=== PATIENT | female | born 1975 | race Caucasian/White ===

== ENCOUNTER 2019-02-24 08:43 | Day surgery (SDC) | payer OTHER ==
[2019-02-23 16:57] VITALS: BMI 26.7
[2019-02-24 10:10] VITALS: TEMP 97.7
[2019-02-24 11:27] VITALS: BP 105/66; PULSE 66
== END 2019-02-24 11:10 | disposition home or self-care (01) ==
LOC: JASU-ENDO 08:43
PROVIDERS: ATTEND Internal Medicine Gastroenterology
PROC: 0DJD8ZZ Inspection of Lower Intestinal Tract, Via Natural or Artificial Opening Endoscopic (ICD-10-PCS; principal; 2019-02-24 09:00)
DX: R10.9 Unspecified abdominal pain (principal); K64.8 Other hemorrhoids
CPT/HCPCS: 84703